=== PATIENT | female | born 1965 | race Caucasian/White ===

== ENCOUNTER → 2023-07-07 18:00 | Outpatient (REF) | payer BC, SELFPAY ==
--- NOTE | 2023-07-08 11:43 | PN.DIAED04 ---
Education Record
- Education Record
Class Attended: Class 4
DSME Class Series Code: [id number]
Instructor: Registered Nurse (Isi Gonzalez, RN, BSN, CDE)
Class Length (mins): 120
Post-Class 4 Test Score (%): 87
== END ==
LOC: DES 18:00
PROVIDERS: ATTENDING PHYSICIAN Internal Medicine
DX: E11.65 Type 2 diabetes mellitus with hyperglycemia (principal)
CPT/HCPCS: 99078

== ENCOUNTER → 2023-07-14 18:00 | Outpatient (REF) | payer BC, SELFPAY ==
--- NOTE | 2023-07-15 15:23 | PN.DIAED16 ---
This is to notify you that your patient with diabetes, SINDHU CUNHA ( 1965), has attended the entire series of Diabetes Self-Management Education Classes.
Class 1 (120 minutes): Diabetes Overview - monitoring, stress/psychosocial adjustment, support, goal setting
Class 2 (120 minutes): Meal Planning - serving sizes, menu plans
Class 3 (120 minutes): Introduction to Carbohydrate Counting, Analyzing Food Labels
Class 4 (120 minutes): Medication, Exercise and Activity
Class 5 (120 minutes): Sick Day Management, Strategies to Reduce Complications, Problem Solving, Resources
The following behavioral goals were identified:
Exercise more often
Make better food choices
Follow meal plan
Reduce portion sizes
Yearly dialated eye exam
A follow-up call will be made within three to six months to evaluate attainment of these goals and to check post-program Hemoglobin A1c and overall progress. All class participants are encouraged to contact me if I can be any further assistance in
learning how to manage their diabetes.
Sincerely,
--- NOTE | 2023-07-18 09:09 | PN.DIAED04 ---
Education Record
- Education Record
Class Attended: Class 5
DSME Class Series Code: [id number]
Instructor: Registered Nurse (Isi Gonzalez, RN, BSN, [facility])
Class Curriculum:
Outpatient Diabetes Education Program:
Class 5 (120 minutes)
Prevent, detect, and treat acute complications
Prevent, detect, and treat chronic complications through risk reduction
Develop personal strategies to address psychosocial issues and concerns
Development of diabetes self-management support plan
Letter to physician with DSMS plan attached sent
Class Length (mins): 120
Post-Program Knowledge: Demonstrates competency
Post-Test Score (%): 98
Post-Program Assessment
- Post-Program Assessment
Actual Weight: 204 lb 2 oz
Blood pressure: 113/72
Post-Program Depression Survey Score: 24
Reviewing Previous Goals?: Yes
Pre-Program Depression Survey Score: 15
- Goals 1 Evaluation
Goals To Be Evaluated: Exercise more often
- Goals 2 Evaluation
Goals To Be Evaluated: Make better food choices. Follow meal plan. Reduce portion sizes
- Goals 3 Evaluation
Goals To Be Evaluated: Yearly dialated eye exam
--- NOTE | 2023-07-22 08:33 | PN.DIAED12 ---
<Domi Arias - Last Filed: 07/22/23 08:33>
Depression is associated with poor diabetes self-management and perceived inability to control diabetes.
After careful consideration and multiple layers of input, the [facility]'s outpatient diabetes education program has implemented a depression screening tool. The tool is the PHQ-9 Quick Depression Assessment.
Each patient who attends the outpatient diabetes education class responds to 9 questions before the first class starts. At the completion of the 5 classes, each patient again responds to the same 9 questions. In theory, after completing the program
the hope is that the patient will feel somewhat more capable of diabetes self-management.
Your patient, KEYLA CUNHA ( 1965), scored 15 on the pre-depression screening and 24 on the post-depression screening which indicates mild/moderate/severe depression.
If you require any additional information, please do not hesitate to contact me at [phone].
Sincerely,
<Keyla Carter - Last Filed: 07/22/23 10:51>
Depression is associated with poor diabetes self-management and perceived inability to control diabetes.
After careful consideration and multiple layers of input, the [facility]'s outpatient diabetes education program has implemented a depression screening tool. The tool is the PHQ-9 Quick Depression Assessment.
Each patient who attends the outpatient diabetes education class responds to 9 questions before the first class starts. At the completion of the 5 classes, each patient again responds to the same 9 questions. In theory, after completing the program
the hope is that the patient will feel somewhat more capable of diabetes self-management.
Your patient, KEYLA CUNHA ( 1965), scored 15 on the pre-depression screening and 24 on the post-depression screening which indicates mild/moderate/severe depression.
On 07/22/2023, the office was contacted by telephone and notified via Office Nurse about the concern for worsened depression since the initial screening.
Enclosed please find a copy of the depression screening.
If you require any additional information, please do not hesitate to contact me at [phone].
Sincerely,
RANDOLPH Walters-, [facility]
== END ==
LOC: DES 18:00
PROVIDERS: ATTENDING PHYSICIAN Internal Medicine
DX: E11.65 Type 2 diabetes mellitus with hyperglycemia (principal)
CPT/HCPCS: 99078